=== PATIENT | female | born 1955 | race Caucasian/White ===

== ENCOUNTER 2021-12-26 16:37 | Emergency (ER) | payer OTHER ==
[2021-12-26 17:01] VITALS: RESP 18; BMI 20.9
[2021-12-26 17:09] VITALS: BP 116/72; PULSE 62; TEMP 98.4
== END 2021-12-26 18:37 | disposition home or self-care (01) ==
LOC: FER 16:37
DX: M25.471 Effusion, right ankle (principal)
CPT/HCPCS: 73610-TC-RT-FY; 99283-25